=== PATIENT | female | born 1940 | race African-American/Black ===

== ENCOUNTER 2018-07-21 08:31 | Emergency (ER) | payer OTHER ==
[~2018-07-21] VITALS: Ht 162.6 cm; Wt 65.8 kg
[2018-07-21] MEDS ORDERED: SYNTHROID50 MCG (08:45)
[2018-07-21] MEDS ORDERED: HYDROCHLOROTH12.5 M1 (08:45)
== END 2018-07-21 14:04 | disposition home or self-care (01) ==
LOC: ER 08:31
DX: S60.212A Contusion of left wrist, initial encounter (principal); W18.39XA Other fall on same level, initial encounter; Y93.89 Activity, other specified; Y92.098 Other place in other non-institutional residence as the place of occurrence of the external cause; Y99.8 Other external cause status